=== PATIENT | female | born 1930 | race Caucasian/White ===

== ENCOUNTER 2018-05-23 20:04 | Inpatient (IN) ==
--- NOTE | 2018-05-23 20:11 | Emergency Department Note ---
General Adult HPI - General Chief complaint: Recheck/Abnormal Lab/Rx Stated complaint: low sodium Time Seen by Provider: 05/23/18 20:09 Source: family Mode of arrival: ambulatory Limitations: no limitations - History of Present Illness HPI Narrative: This patient was sent in by Dr. Molina because a review routine lab values showed a sodium of 125. This did come down in the last couple of weeks. Dr. Molina was concerned because he can talk to the patient on the phone and he thought she seemed confused. He requested that she come to the emergency room she has. She is quite talkative and quite alert seems quite reasonable at this time. We will recheck the lab values and start IV with some lactated Ringer's. She denies any other symptoms. She says she has been drinking a lot of plain water because she was advised to because it so hot here. She is also had some lightheaded dizzy spells. - Related Data Home Medications Medication Instructions Recorded Confirmed Vitamin D 1500 1 tab PO QDAY 04/09/15 05/22/18 multivitamin 1 tab PO DAILY 04/09/15 05/22/18 calcium carbonate 500 mg calcium 1,500 mg PO QDAY tab 05/28/15 05/22/18 (1,250 mg) tablet ascorbic acid (vitamin C) 500 mg 500 mg PO .QODAY tab 07/10/17 05/22/18 tablet ferrous sulfate 325 mg (65 mg 325 mg PO .QODAY tab 07/10/17 05/22/18 iron) tablet Previous Rx's Medication Instructions Recorded atenolol 50 mg tablet 50 mg PO QDAY #90 tab 06/22/17 glipizide ER 10 mg tablet, 10 mg PO QDAY #90 tab 06/22/17 extended release 24 hr losartan 100 mg tablet 100 mg PO QDAY #90 tab 06/22/17 metformin 500 mg tablet 1,000 mg PO BID 90 Days #360 tab 06/22/17 potassium chloride ER 20 mEq 20 meq PO QDAY #90 tab 06/22/17 tablet,extended release(part/cryst) levothyroxine 112 mcg tablet 112 mcg PO QAM #90 tab 06/23/17 triamterene 75 1 tab PO QDAY #90 tab 08/08/17 mg-hydrochlorothiazide 50 mg tablet omeprazole 20 mg capsule,delayed 20 mg PO QDAY #90 cap 04/23/18 release glipizide ER 5 mg tablet, extended 5 mg PO QAM #30 tab 05/08/18 release 24 hr sulfamethoxazole 800 1 tab PO BID #14 tab 05/23/18 mg-trimethoprim 160 mg tablet Allergies Allergy/AdvReac Type Severity Reaction Status Date / Time lisinopril AdvReac Mild Cough Verified 05/22/18 09:40 morphine AdvReac too long Verified 05/22/18 09:40 to recall reaction Review of Systems All systems ED: reviewed and negative except as stated. Past Medical History - Past Medical History [facility] Narrative: Medical History (Last Reviewed 05/22/18 @ 10:17 by Tamiko Carrasco DO) Metabolic Syndrome X (Chronic) Bronchitis (Resolved) Vitamin D deficiency (Chronic) Squamous cell carcinoma of skin of face (Resolved) Shoulder joint derangement (Chronic) Osteopenia (Chronic) Osteoarthritis (Chronic) Muscle cramps (Chronic 06/30/14) Dysmetabolic syndrome X (Chronic) Hypothyroidism (Chronic) Hyponatremia (Chronic 01/07/13) Hypertension, essential (Chronic) Hyperlipemia (Chronic) Hypercalcemia (Chronic 06/02/13) Hernia, hiatal (Chronic) Hemorrhoids (Chronic) Gastroesophageal reflux (Chronic) Fatigue (Chronic) Esophageal dysmotility (Chronic) Diverticulitis of colon (Chronic) 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) Diabetes mellitus, type II (Chronic) Cough (Chronic 05/27/14) Anemia (Chronic) Alopecia (Chronic) Actinic keratosis (Chronic 05/06/13) Abdominal pain (Resolved) Past Surgical History (Last Reviewed 12/07/17 @ 14:56 by Chin Molina MD) Status post MASOOD-BSO (Resolved) History of hip replacement (Resolved) Status post biopsy of skin (Resolved 02/25/13) History of hemorrhoidectomy (Resolved) History of foot surgery (Resolved 04/12/13) History of esophagogastroduodenoscopy (Resolved 07/02/14) History of colonoscopy (Resolved) History of cholecystectomy (Resolved) History of cataract surgery (Resolved) History of appendectomy (Resolved) Family History (Last Reviewed 12/07/17 @ 14:56 by Chin Molina MD) Father Type 2 diabetes mellitus Mother Pulmonary embolism Medical history: Reports: other ( Diabetes bronchitis, hypothyroidism, hypertension, hyperlipidemia) Surgical history ED: Reports: other (Hemorrhoidectomy, foot surgery, EGD, colonoscopy, cholecystectomy, cataract, appendectomy) - Social History smoking status: Never smoker Alcohol use: Reports: None Drug use: Reports: none Physical Exam Limitations: no limitations General appearance: alert Head: atraumatic Eye: Present: normal appearance ENT: normal exam Neck: Present: normal inspection Chest: Present: normal inspection Respiratory: Present: normal lung sounds bilaterally Cardiovascular: Present: regular rate, normal rhythm, normal heart sounds Abdominal: Present: soft. Absent: distention, tenderness Neurological: Present: alert Psychiatric: Present: normal affect Skin: Present: warm, dry, intact Course Vital Signs Temperature 97.0 F 05/23/18 20:04 Pulse Rate 67 05/23/18 20:04 Respiratory Rate 19 05/23/18 20:04 Blood Pressure 187/69 05/23/18 20:04 Pulse Oximetry (%) 100 05/23/18 20:04 Temperature 97.0 F 05/23/18 20:04 Pulse Rate 65 05/23/18 21:16 Respiratory Rate 22 05/23/18 21:16 Blood Pressure 157/78 05/23/18 21:16 Pulse Oximetry (%) 100 05/23/18 21:16 Medical Decision Making - MDM Narrative Medical decision making narrative: This patient has a sodium of 119 earlier today at 122. She will be admitted to the hospital for treatment. - Lab Data Lab results reviewed: Yes I reviewed the patient's lab results. Result diagrams: 05/23/18 20:23 05/23/18 20:23 Lab Results 05/23/18 05/23/18 Range/Units 20:23 20:23 WBC 8.9 (4.5-11.0) K/mcL RBC 4.40 (4.00-5.20) M/mcL Hgb 13.3 (12.0-15.0) g/dL Hct 39.7 (36.0-48.0) % MCV 90.4 (80.0-100.0) fL MCH 30.3 (26.0-34.0) pg MCHC 33.6 (31.0-36.0) g/dL RDW 13.4 (11.5-14.5) % Plt Count 270 (140-440) K/mcL MPV 7.8 (7.4-10.4) fL Gran % 70.0 (38.0-78.0) % Lymph % (Auto) 19.9 (15.5-49.0) % [place] % (Auto) 7.7 (1.0-12.0) % Eos % (Auto) 2.0 (0.0-7.0) % Baso % (Auto) 0.4 (0.0-2.0) % Gran # 6.2 (1.8-8.0) K/mcL Lymph # (Auto) 1.8 (1.5-4.8) K/mcL [place] # (Auto) 0.7 (0.1-0.9) K/mcL Eos # (Auto) 0.2 (0.0-0.7) K/mcL Baso # (Auto) 0 (0.0-0.3) K/mcL Sodium 119 L* (133-145) mmol/L Potassium 3.8 (3.3-5.1) mmol/L Chloride 79 L (96-108) mmol/L Carbon Dioxide 25 (22-30) mmol/L Anion Gap 15.0 (8-16) BUN 12 (8-23) mg/dl Creatinine 1.0 (0.6-1.1) mg/dl GFR Calculation 51 Glucose 141 H (70-105) mg/dL Calcium 9.9 (8.6-10.4) mg/dl Total Bilirubin 0.4 (0.0-1.0) mg/dL AST 19 (0-37) U/l ALT 15 (0-40) U/l Alkaline Phosphatase 65 (39-117) U/L Total Protein 7.9 (5.9-8.4) gm/dL Albumin 4.7 (3.2-5.2) gm/dL Globulin 3.2 (2.2-3.7) gm/dL Albumin/Globulin Ratio 1.5 (1.0-2.3) Disposition Pt seen by COAL GASIFICATION TECHNICIAN/PA only: No Clinical Impression: Hyponatremia Disposition: Xfer As Inpt ([facility]) Condition: Good Referrals: Chin Molina MD [Primary Care Provider] - Time of Disposition: 21:36
[2018-05-23] MEDS ORDERED: LACTATED RINGERS 1,000 ML IV SCH (20:15)
[2018-05-23 21:07] LABS: Basophils # (Auto) 0 K/mcL (0.0-0.3); Basophils % (Auto) 0.4 % (0.0-2.0); Eosinophils # (Auto) 0.2 K/mcL (0.0-0.7); Lymphocytes # (Auto) 1.8 K/mcL (1.5-4.8); Lymphocytes % (Auto) 19.9 % (15.5-49.0); Mean Cell Volume 90.4 fL (80.0-100.0); Mean Corpuscular HGB Conc 33.6 g/dL (31.0-36.0); Mean Corpuscular Hemoglobin 30.3 pg (26.0-34.0); Monocytes # (Auto) 0.7 K/mcL (0.1-0.9); Monocytes % (Auto) 7.7 % (1.0-12.0); Platelet Count 270 K/mcL (140-440); Red Cell Distribution Width 13.4 % (11.5-14.5)
[2018-05-23 21:30] LABS: ALT/SGPT 15 U/l (0-40); Albumin 4.7 gm/dL (3.2-5.2); Albumin/Globulin Ratio 1.5 (1.0-2.3); Alkaline Phosphatase 65 U/L (39-117); Blood Urea Nitrogen 12 mg/dl (8-23)
[2018-05-23] MEDS ORDERED: ACETAMINOPHEN 325 MG TABLET PO PRN (22:26)
[2018-05-23] MEDS ORDERED: ONDANSETRON 4 MG/2 ML VIAL IV PRN (22:26)
[2018-05-23] MEDS ORDERED: cefTRIAXone 1 GM in DEXTROSE 5% IN WATER 50 ML IV SCH (22:26)
[2018-05-23] MEDS ORDERED: DEXTROSE 50% 50 ML VIAL IV PRN (22:39)
[2018-05-23] MEDS ORDERED: DEXTROSE 31 GM ORAL.SUSP PO PRN (22:39)
[2018-05-23] MEDS ORDERED: cefTRIAXone 1 GM VIAL ONE (23:04)
[2018-05-23 23:05] LABS: Appearance,Urine CLEAR; Bacteria,Urine FEW /hpf (0); Bilirubin,Urine NEG (NEG); Color,Urine STRAW; Glucose,Urine (UA) NEGATIVE (NEG); Leukocyte Esterase,Urine NEG /uL (NEG); Protein,Urine NEG (NEG); Specific Gravity,Urine 1.003 (1.000-1.035); Urine Blood NEG mg/dL (<0.03); Urine RBC < 1 /hpf (0-1); Urine Squamous Epithelial Cell 1 /hpf (0-4); Urine WBC 2 /hpf (0-4); Urobilinogen,Urine NEG (NEG)
--- NOTE | 2018-05-23 23:05 | Internal Med History&Physical ---
Medical - H&P: HPI Patient information: Note initiated : 05/23/18 at 11:00 pm Service Date, if different from initiated Date: [] Patient: Nguyen Edwards 87 y/o F admitted on 05/23/18 for low sodium. Chief Complaint: [] History of present illness: Ms. Edwards is a 87 year old F who was brought to the ER for evaluation of abnormal lab. The patient had low sodium on lab work done by the PCP, Na of 122 , She also has been having some dizziness for the last couple of weeks. The patient notes that for the last couple of weeks she has been having some dizzy spells, she notes that dizzy spells can happen anytime usually not when she is lying in bed associated with spinning sensation. Sometimes nausea. No vomiting. She denies any headache acute changes in hearing or any tinnitus- like symptoms. She has been diagnosed with a urinary tract infection and took some antibiotics. The patient also notes that for the last couple weeks she has been drinking a lot more fluids at the urging of her family members. She usually does not drink much water however now has been drinking for large pictchers of water, 2 large glasses of iced tea and some other vegetable juices. The patient notes that her PCP had advised her against drinking too much water. The patient had her sodium level around 128-130 over the last few months. When checked today it was 122 and was therefore sent to the ER for further evaluation. In the emergency room patient was hemodynamically stable her sodium level was 119. Her CBC was normal rest of the chemistries unremarkable TSH was checked recently which was normal. UA was suggestive of a urinary tract infection. The patient was admitted to the hospital for further evaluation and management. Review of systems: CONSTITUTIONAL: No weight loss, fever, chills, weakness or fatigue. HEENT: Eyes: No visual loss, blurred vision, double vision or yellow sclerae. Ears, Nose, Throat: No hearing loss, sneezing, congestion, runny nose or sore throat. SKIN: No rash or itching. CARDIOVASCULAR: No chest pain, chest pressure or chest discomfort. No palpitations or edema. RESPIRATORY: No shortness of breath, cough or sputum. GASTROINTESTINAL: some nausea,No vomiting or diarrhea or constipation. No abdominal pain or blood in stools No T[place]ani. GENITOURINARY: Denies Burning on urination. Blood in urine, or foul smelling urine , she has increased frequency of urination. NEUROLOGICAL: No headache, but present dizziness,NO syncope, paralysis, tremors , numbness or tingling in the extremities. No change in bowel or bladder control. MUSCULOSKELETAL: present chronic back pain, No new joint pain or stiffness. HEMATOLOGIC: No bleeding or bruising. No enlarged nodes PSYCHIATRIC: No depression or anxiety. ENDOCRINOLOGIC: No reports of sweating, cold or heat intolerance. No polyuria or polydipsia. ALLERGIES: No hives, eczema or rhinitis. Skin: No rash, no jaundice, cyanosis or pallor. Medical - H&P: PMH Medical history: Medical History (Last Reviewed 05/22/18 @ 10:17 by Tamiko Carrasco DO) Metabolic Syndrome X (Chronic) Bronchitis (Resolved) Vitamin D deficiency (Chronic) Squamous cell carcinoma of skin of face (Resolved) Shoulder joint derangement (Chronic) Osteopenia (Chronic) Osteoarthritis (Chronic) Muscle cramps (Chronic 06/30/14) Dysmetabolic syndrome X (Chronic) Hypothyroidism (Chronic) Hyponatremia (Chronic 01/07/13) Hypertension, essential (Chronic) Hyperlipemia (Chronic) Hypercalcemia (Chronic 06/02/13) Hernia, hiatal (Chronic) Hemorrhoids (Chronic) Gastroesophageal reflux (Chronic) Fatigue (Chronic) Esophageal dysmotility (Chronic) Diverticulitis of colon (Chronic) 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) Diabetes mellitus, type II (Chronic) Cough (Chronic 05/27/14) Anemia (Chronic) Alopecia (Chronic) Actinic keratosis (Chronic 05/06/13) Abdominal pain (Resolved) Surgical history: Past Surgical History (Last Reviewed 12/07/17 @ 14:56 by Chin Molina MD) Status post MASOOD-BSO (Resolved) History of hip replacement (Resolved) Status post biopsy of skin (Resolved 02/25/13) History of hemorrhoidectomy (Resolved) History of foot surgery (Resolved 04/12/13) History of esophagogastroduodenoscopy (Resolved 07/02/14) History of colonoscopy (Resolved) History of cholecystectomy (Resolved) History of cataract surgery (Resolved) History of appendectomy (Resolved) Pertinent family history: Family History (Last Reviewed 12/07/17 @ 14:56 by Chin Molina MD) Father Type 2 diabetes mellitus Mother Pulmonary embolism Medical - H&P: Meds Home Medications Medication Instructions Recorded Confirmed Type multivitamin 1 tab PO DAILY 04/09/15 05/23/18 History calcium carbonate 500 mg calcium 1,500 mg PO TID tab 05/28/15 05/23/18 History (1,250 mg) tablet atenolol 50 mg tablet 50 mg PO QDAY #90 tab 06/22/17 05/23/18 Rx losartan 100 mg tablet 100 mg PO QDAY #90 tab 06/22/17 05/23/18 Rx metformin 500 mg tablet 1,000 mg PO BID 90 Days #360 tab 06/22/17 05/23/18 Rx potassium chloride ER 20 mEq 20 meq PO QDAY #90 tab 06/22/17 05/23/18 Rx tablet,extended release(part/cryst) levothyroxine 112 mcg tablet 112 mcg PO QAM #90 tab 06/23/17 05/23/18 Rx ferrous sulfate 325 mg (65 mg 325 mg PO .QODAY tab 07/10/17 05/23/18 History iron) tablet triamterene 75 1 tab PO QDAY #90 tab 08/08/17 05/23/18 Rx mg-hydrochlorothiazide 50 mg tablet omeprazole 20 mg capsule,delayed 20 mg PO QDAY #90 cap 04/23/18 05/23/18 Rx release glipizide ER 5 mg tablet, extended 5 mg PO QAM #30 tab 05/08/18 05/23/18 Rx release 24 hr Allergies Allergy/AdvReac Type Severity Reaction Status Date / Time lisinopril AdvReac Mild Cough Verified 05/22/18 09:40 morphine AdvReac too long Verified 05/22/18 09:40 to recall reaction Medical - H&P: Exam - Constitutional Vitals: Temp Pulse Resp BP Pulse Ox 97.0 F 66 14 152/69 95 05/23/18 20:04 05/23/18 22:01 05/23/18 22:01 05/23/18 22:01 05/23/18 22:01 Exam: GENERAL: The patient is a well-developed, well-nourished in no apparent distress. Is alert and oriented x3. VITAL SIGNS: Reviewed and as noted elsewhere. HEENT: Head is normocephalic and atraumatic. Extraocular muscles are intact. Pupils are equal, round, and reactive to light. Nares appeared normal. Mouth appears any without lesions. Mucous membranes are moist. NECK: Normal to inspection, Supple, No lymphadenopathy or thyromegaly. LUNGS: Air entry equal on both sides, no wheezing, crackles or rhonchi noted. No accessory muscles of respiration HEART: Regular rate and rhythm normal, S1 and S2 heard, no Gallop, S3 or Rub Noted, No Gross murmur heard. ABDOMEN: Soft, nontender, and nondistended. Positive bowel sounds. No hepatosplenomegaly was noted. EXTREMITIES: No cyanosis, clubbing, rash, lesions or edema. NEUROLOGIC: Cranial nerves II through XII are grossly intact. Motor and Sensory System Grossly Intact PSYCHIATRIC: Normal affect, Normal Mood. Appropriate Behavior. SKIN: No ulceration or wounds noted, No jaundice, No rash noted. Medical - H&P: Reslt - Labs CBC & Chem 7: 05/23/18 20:23 05/23/18 20:23 Labs: Short CBC 05/23/18 Range/Units 20:23 WBC 8.9 (4.5-11.0) K/mcL Hgb 13.3 (12.0-15.0) g/dL Hct 39.7 (36.0-48.0) % Plt Count 270 (140-440) K/mcL BMP 05/23/18 20:23 Sodium 119 L* Potassium 3.8 Chloride 79 L Carbon Dioxide 25 BUN 12 Creatinine 1.0 Glucose 141 H Calcium 9.9 Liver Function 05/23/18 Range/Units 20:23 Total Bilirubin 0.4 (0.0-1.0) mg/dL AST 19 (0-37) U/l ALT 15 (0-40) U/l Alkaline Phosphatase 65 (39-117) U/L Albumin 4.7 (3.2-5.2) gm/dL Medical - H&P: A/P - Narrative A/P Narrative: A/P Acute hyponatremia, severe Diabetes Hypertension Vertigo/ Dizziness Urinary Tract Infection Chronic back pain Hypothyroidism Hyperlipidemia Plan Admit to tele IV LR x 1000ml given in the ER, recheck sodium, monitor sodium closely, try to correct slowly, goal 8-10 in 24 hrs, more slowly if possible. Fluid restriction to 1500ml check urine studies. patient has been on hctz 50mg and triamterene, which likely has contributed to patients low sodium, and low baseline sodium to begin with. It likely also confound some urine sodium studies. D/C triamterene hctz, start on amlodipine 10mg daily for bp management. we could alternatively consider aldactone for bp management. Resume rest of bp meds IV rocephin for UTI, resume home medications. hold diabetes meds, Insulin ssi for glucose controll Carb consitent diet, 1500cc fluid restriction DVT hep sq Social History - Social History household members: alone housing: house lives independently: Yes marital status: occupational status: retired - Tobacco smoking status: Never smoker - Alcohol alcohol intake frequency: former alcohol drinker
[2018-05-23 23:07] LABS: Osmolality,Urine 141 mOsm/kg (80-1000)
[2018-05-23 23:18] LABS: Blood Urea Nitrogen 11 mg/dl (8-23)
[2018-05-23] MEDS: 0.9 % SODIUM CHLORIDE 10 ML SYRINGE IV SCH (23:30)
[2018-05-24 05:35] LABS: Basophils # (Auto) 0 K/mcL (0.0-0.3); Basophils % (Auto) 0.3 % (0.0-2.0); Eosinophils # (Auto) 0.1 K/mcL (0.0-0.7); Eosinophils % (Auto) 1.3 % (0.0-7.0); Granulocytes % (Auto) 74.9 % (38.0-78.0); Lymphocytes # (Auto) 1.5 K/mcL (1.5-4.8); Lymphocytes % (Auto) 15.3 % (15.5-49.0); Mean Cell Volume 91.1 fL (80.0-100.0); Monocytes # (Auto) 0.8 K/mcL (0.1-0.9); Monocytes % (Auto) 8.2 % (1.0-12.0); Platelet Count 226 K/mcL (140-440); RBC 3.78 M/mcL (4.00-5.20); Red Cell Distribution Width 13.3 % (11.5-14.5)
[2018-05-24] MEDS: 0.9 % SODIUM CHLORIDE 10 ML SYRINGE IV SCH ×4 (05:56→21:43)
[2018-05-24 06:02] LABS: ALT/SGPT 11 U/l (0-40); Albumin 3.8 gm/dL (3.2-5.2); Albumin/Globulin Ratio 1.7 (1.0-2.3); Alkaline Phosphatase 53 U/L (39-117); Bilirubin,Direct < 0.2 mg/dL (0.0-0.3); Blood Urea Nitrogen 9 mg/dl (8-23); Gamma Glutamyl Transpeptidase 9 U/L (5-36); Uric Acid 4.2 mg/dL (2.5-8.0)
[2018-05-24] MEDS ORDERED: LEVOTHYROXINE SODIUM 112 MCG TABLET PO SCH (07:30)
[2018-05-24] MEDS ORDERED: OMEPRAZOLE 20 MG CAPSULE PO SCH (07:30)
[2018-05-24] MEDS: INSULIN LISPRO 1 UNIT/0.01 ML UNIT SQ SCH ×4 (07:59→21:44)
[2018-05-24] MEDS ORDERED: DEXTROSE 5%-1/2NS W/40MEQ KCL 1,000 ML IV SCH (08:00)
[2018-05-24] MEDS ORDERED: MAGNESIUM SULFATE 32.48 MEQ in DEXTROSE 5% IN WATER 100 ML IV ONE (08:21)
[2018-05-24] MEDS: MAGNESIUM SULFATE 2 GM/50 ML BAG IV SCH ×2 (08:34→11:18)
[2018-05-24] MEDS ORDERED: MULTIVIT,THER IRON,CA,FA & MIN 1 TABLET PO SCH (09:00)
[2018-05-24] MEDS ORDERED: LOSARTAN 50 MG TABLET PO SCH (09:00)
[2018-05-24] MEDS ORDERED: ATENOLOL 50 MG TABLET PO SCH (09:00)
[2018-05-24] MEDS ORDERED: cefTRIAXone 1 GM VIAL IV SCH (09:00)
[2018-05-24] MEDS ORDERED: amLODIPine 10 MG TABLET PO SCH (09:00)
[2018-05-24] MEDS ORDERED: CALCIUM (OYSTER SHELL) 500 MG TABLET PO SCH (09:00)
[2018-05-24] MEDS ORDERED: HEPARIN 5,000 UNIT/ML VIAL SQ SCH (09:00)
--- NOTE | 2018-05-24 09:41 | Cat Scan Report ---
History: Dizziness and nausea TECHNIQUE: The brain was imaged without contrast at 2.5 mm intervals. Mild atrophy is present, predominantly involving the frontal and temporal lobes. There is no evidence of hemorrhage, infarct or mass effect. The ventricles and cisterns are normal. No abnormality is seen in the posterior fossa. The visualized sinuses are clear. IMPRESSION: Normal exam for patient's age Interpreted and Authenticated by: Suresh Landa 05/24/18
[2018-05-24 11:58] LABS: Blood Urea Nitrogen 9 mg/dl (8-23)
[2018-05-24] MEDS ORDERED: FERROUS SULFATE 325 MG TABLET PO SCH (12:00)
[2018-05-24] MEDS ORDERED: POTASSIUM CHLORIDE 20 MEQ TABLET PO ONE (12:39)
--- NOTE | 2018-05-24 12:44 | Internal Med Progress Note ---
Medical - PN: Subj Patient information: Note initiated : 05/24/18 at 12:42 pm Service Date, if different from initiated Date: [] Patient: Nguyen Edwards 87 y/o F admitted on 05/23/18 for Low Sodium/ Hyponatremia. Chief Complaint: [] Interval history: Ms. Edwards is a 87 year old F who was brought to the ER for evaluation of abnormal lab. The patient had low sodium on lab work done by the PCP, Na of 122 , She also has been having some dizziness for the last couple of weeks. The patient notes that for the last couple of weeks she has been having some dizzy spells, she notes that dizzy spells can happen anytime usually not when she is lying in bed associated with spinning sensation. Sometimes nausea. No vomiting. She denies any headache acute changes in hearing or any tinnitus- like symptoms. She has been diagnosed with a urinary tract infection and took some antibiotics. The patient also notes that for the last couple weeks she has been drinking a lot more fluids at the urging of her family members. She usually does not drink much water however now has been drinking for large pictchers of water, 2 large glasses of iced tea and some other vegetable juices. The patient notes that her PCP had advised her against drinking too much water. The patient had her sodium level around 128-130 over the last few months. When checked today it was 122 and was therefore sent to the ER for further evaluation. In the emergency room patient was hemodynamically stable her sodium level was 119. Her CBC was normal rest of the chemistries unremarkable TSH was checked recently which was normal. UA was suggestive of a urinary tract infection. The patient was admitted to the hospital for further evaluation and management. 05/24 Patient seen and examined, no acute overnight events. Patient's sodium was 126 this morning, patient was started on a D5 drip repeat sodium is 122. Patient has intermittent dizziness which she clearly explains as vertigo-like symptoms. Head CT was done which is negative. Patient will continue to be on free water restriction, will monitor sodium closely. Plan of care reviewed with the patient as well as daughter and grandson. Transfer patient to medical status. Pertinent ROS: Denies headache, dizziness Denies chest pain, palpitations Denies cough or shortness of breath Denies abdominal pain, nausea or vomiting. - Constitutional Vitals: Vital Signs Temp Pulse Resp BP Pulse Ox 97.1 F 64 16 160/73 97 05/24/18 07:28 05/24/18 04:00 05/24/18 07:28 05/24/18 07:28 05/24/18 07:28 Period Temp Pulse Resp BP Sys/Low Pulse Ox Last 24 Hr 97.0 F-97.4 F 63-67 14-22 141-187/64-82 95-100 Intake and Output 05/23/18 05/24/18 05/24/18 21:59 05:59 13:59 Intake Total 421 / 421 525 / 525 Output Total 1300 / 1300 Balance -879 / -879 525 / 525 Weight 138 lb 138 lb Intake & Output: Intake & Output 05/23/18 05/24/18 05/24/18 21:59 05:59 13:59 Intake Total 421 / 421 525 / 525 Output Total 1300 / 1300 Balance -879 / -879 525 / 525 Weight 138 lb 138 lb Intake: IV 371 / 371 125 / 125 Dextrose 5%-1/2Ns W/40Meq KCl 1 75 / 75 ,000 ml @ 75 mls/hr IV .[id number] RONDA Rx#:[id number] Lactated Ringers 1,000 ml @ 250 371 / 371 mls/hr IV .Q4H RONDA Rx#: [id number] Oral 50 / 50 400 / 400 Output: Void Amount 1300 / 1300 Other: Meal Breakfast Percent of Meal Consumed 75% Feeding Ability Independent # Voids 1 Exam: Constitutional; Afebrile, cooperative, alert, not in distress. Eyes- No icterus, , No periorbital swelling Ears- Ext ear normal, hearing normal to conversation. Neck- Midline trachea, supple Respiratory system: Air Entry equal on both sides, No crackles or wheezing, no rhonchi. CVS- Rate rhythm regular, S1,S2 heard, no gallop, no rub. 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 Medical - PN: Obj Da - Labs CBC & Chem 7: 05/24/18 04:00 05/24/18 11:08 Labs: Abnormal Lab Results 05/24/18 05/24/18 05/24/18 11:08 04:00 04:00 RBC 3.78 L Hgb 11.7 L Hct 34.4 L Lymph % (Auto) 15.3 L Sodium 122 L 126 L Chloride 81 L 86 L Glucose 196 H Osmolality Phosphorus 2.6 L Magnesium 1.3 L Triglycerides 219 H Urine Bacteria 05/23/18 05/23/18 05/23/18 22:38 22:35 20:23 RBC Hgb Hct Lymph % (Auto) Sodium 121 L Chloride 82 L Glucose Osmolality 254 L Phosphorus Magnesium Triglycerides Urine Bacteria Few A 05/23/18 20:23 RBC Hgb Hct Lymph % (Auto) Sodium 119 L* Chloride 79 L Glucose 141 H Osmolality Phosphorus Magnesium Triglycerides Urine Bacteria Meds: Medications Acetaminophen (Tylenol) 650 mg PO Q6HP PRN PRN Reason: PAIN/FEVER > 101 Amlodipine Besylate (Norvasc) 10 mg PO DAILY COUNTS INCLUDE 234 BEDS AT THE [facility] Last Admin: 05/24/18 08:33 Dose: 10 mg Atenolol (Tenormin) 50 mg PO QDAY COUNTS INCLUDE 234 BEDS AT THE [facility] Last Admin: 05/24/18 08:33 Dose: 50 mg Calcium Carbonate/Glycine (Oscal) 1,500 mg PO TID COUNTS INCLUDE 234 BEDS AT THE [facility] Last Admin: 05/24/18 08:33 Dose: 1,500 mg Ceftriaxone Sodium (Rocephin) 1 gm IV Q24H COUNTS INCLUDE 234 BEDS AT THE [facility] Last Admin: 05/24/18 08:15 Dose: 1 gm Dextrose (Dextrose 50%) 0 ml IV UD PRN PRN Reason: Hypoglycemia Diagnostic Test (Pha) (Accu-Chek) 1 each FS [facility] COUNTS INCLUDE 234 BEDS AT THE [facility] Last Admin: 05/24/18 11:43 Dose: 1 each Ferrous Sulfate (Ferrous Sulfate) 325 mg PO DAILY@1200 COUNTS INCLUDE 234 BEDS AT THE [facility] Last Admin: 05/24/18 11:46 Dose: 325 mg Glucose (Insta-Glucose) 15 gm PO PRN PRN PRN Reason: Hypoglycemia Heparin Sodium (Porcine) (Heparin) 5,000 unit SQ Q12 COUNTS INCLUDE 234 BEDS AT THE [facility] Last Admin: 05/24/18 08:33 Dose: 5,000 unit Insulin Human Lispro (Humalog) 0 unit SQ [facility]; Protocol Last Admin: 05/24/18 11:44 Dose: 3 unit Iron Carb/Multivit/Jay/Folic Acid (Multivitamin W/Minerals) 1 tab PO DAILY COUNTS INCLUDE 234 BEDS AT THE [facility] Last Admin: 05/24/18 08:33 Dose: 1 tab Levothyroxine Sodium (Synthroid) 112 mcg PO QAMAC COUNTS INCLUDE 234 BEDS AT THE [facility] Last Admin: 05/24/18 07:36 Dose: 112 mcg Losartan Potassium (Cozaar) 100 mg PO DAILY COUNTS INCLUDE 234 BEDS AT THE [facility] Last Admin: 05/24/18 08:33 Dose: 100 mg Omeprazole (Prilosec) 20 mg PO QAMAC COUNTS INCLUDE 234 BEDS AT THE [facility] Last Admin: 05/24/18 07:37 Dose: 20 mg Ondansetron HCl (Zofran) 4 mg IV Q4HP PRN PRN Reason: Nausea And Vomiting Sodium Chloride (Saline Flush) 10 ml IV Q8 COUNTS INCLUDE 234 BEDS AT THE [facility] Last Admin: 05/24/18 08:15 Dose: 10 ml Medical - PN: A/P - Time Spent With Patient Total time spent is greater than 50% in coordination of care (as documented) at patient's floor/unit and/or counseling patient: - Narrative A/P Narrative: A/P Acute hyponatremia, severe Diabetes Hypertension Vertigo/ Dizziness Urinary Tract Infection Chronic back pain Hypothyroidism Hyperlipidemia hypomagnesemia Hypokalemia Plan monitor on med surg Na trending up slowly, will use d5 prn to correct over correction as needed. monitor sodium closely, continue free water restriction of 1500cc replace mg and potassium insulin for ssi glucose continue home bp meds, start on amlodipine, will discontinue hctz-triamterne Patient is in overall good spirtis Carb consitent diet, 1500cc fluid restriction DVT hep sq
[2018-05-24] MEDS ORDERED: ACETAMINOPHEN 325 MG TABLET PO PRN (14:08)
[2018-05-24] MEDS ORDERED: ONDANSETRON 4 MG/2 ML VIAL IV PRN (14:08)
[2018-05-24] MEDS ORDERED: DEXTROSE 31 GM ORAL.SUSP PO PRN (14:08)
[2018-05-24] MEDS ORDERED: DEXTROSE 50% 50 ML VIAL IV PRN (14:08)
[2018-05-24] MEDS: CALCIUM (OYSTER SHELL) 500 MG TABLET PO SCH ×2 (14:49→21:44)
[2018-05-24 17:05] LABS: Blood Urea Nitrogen 10 mg/dl (8-23)
[2018-05-24 20:14] LABS: Blood Urea Nitrogen 12 mg/dl (8-23)
[2018-05-24] MEDS: HEPARIN 5,000 UNIT/ML VIAL SQ SCH (21:44)
[2018-05-25] MEDS: 0.9 % SODIUM CHLORIDE 10 ML SYRINGE IV SCH (05:29)
[2018-05-25 05:44] LABS: Basophils # (Auto) 0 K/mcL (0.0-0.3); Basophils % (Auto) 0.4 % (0.0-2.0); Eosinophils # (Auto) 0.3 K/mcL (0.0-0.7); Eosinophils % (Auto) 4.3 % (0.0-7.0); Granulocytes % (Auto) 65.4 % (38.0-78.0); Lymphocytes # (Auto) 1.4 K/mcL (1.5-4.8); Lymphocytes % (Auto) 20.3 % (15.5-49.0); Mean Cell Volume 89.8 fL (80.0-100.0); Mean Corpuscular HGB Conc 34.2 g/dL (31.0-36.0); Mean Corpuscular Hemoglobin 30.7 pg (26.0-34.0); Monocytes # (Auto) 0.7 K/mcL (0.1-0.9); Monocytes % (Auto) 9.6 % (1.0-12.0); Platelet Count 235 K/mcL (140-440); RBC 3.93 M/mcL (4.00-5.20); Red Cell Distribution Width 13.5 % (11.5-14.5)
[2018-05-25 06:17] LABS: ALT/SGPT 12 U/l (0-40); Albumin 3.8 gm/dL (3.2-5.2); Albumin/Globulin Ratio 1.4 (1.0-2.3); Alkaline Phosphatase 58 U/L (39-117); Bilirubin,Direct < 0.2 mg/dL (0.0-0.3); Blood Urea Nitrogen 14 mg/dl (8-23); Gamma Glutamyl Transpeptidase 9 U/L (5-36); Uric Acid 5.2 mg/dL (2.5-8.0)
[2018-05-25] MEDS ORDERED: OMEPRAZOLE 20 MG CAPSULE PO SCH (07:30)
[2018-05-25] MEDS ORDERED: LEVOTHYROXINE SODIUM 112 MCG TABLET PO SCH (07:30)
[2018-05-25] MEDS ORDERED: MULTIVIT,THER IRON,CA,FA & MIN 1 TABLET PO SCH (09:00)
[2018-05-25] MEDS ORDERED: cefTRIAXone 1 GM VIAL IV SCH (09:00)
[2018-05-25] MEDS ORDERED: LOSARTAN 50 MG TABLET PO SCH (09:00)
[2018-05-25] MEDS ORDERED: ATENOLOL 50 MG TABLET PO SCH (09:00)
[2018-05-25] MEDS ORDERED: amLODIPine 10 MG TABLET PO SCH (09:00)
--- NOTE | 2018-05-25 09:06 | Discharge Summary ---
Medical - DS: Prov Patient information: Note initiated : 05/25/18 at 8:49 am Service Date, if different from initiated Date: [] Patient: Nguyen Edwards 87 y/o F admitted on 05/23/18 for Low Sodium/ Hyponatremia. Chief Complaint: [] Date of admission: 05/23/18 22:18 Discharge date: 05/25/18 Primary care physician: Chin Molina Admitting clinician: Gab Ramirez Discharging clinician: Gab Ramirez Medical - DS: Meds - Discharge Medications Prescriptions: amLODIPine [Norvasc] 10 mg PO DAILY #30 tab Active and Home Medications: Home Medications multivitamin 1 tab PO DAILY 04/09/15 [History Confirmed 05/23/18 Last Taken ] calcium carbonate 500 mg calcium (1,250 mg) tablet 1,500 mg PO TID tab [History Confirmed 05/23/18 Last Taken 02/06/17] atenolol 50 mg tablet 50 mg PO QDAY #90 tab 06/22/17 [Rx Confirmed 05/23/18 Last Taken Unknown] losartan 100 mg tablet 100 mg PO QDAY #90 tab 06/22/17 [Rx Confirmed 05/23/18 Last Taken Unknown] metformin 500 mg tablet 1,000 mg PO BID 90 Days #360 tab 06/22/17 [Rx Confirmed 05/23/18 Last Taken Unknown] potassium chloride ER 20 mEq tablet,extended release(part/cryst) 20 meq PO QDAY #90 tab 06/22/17 [Rx Confirmed 05/23/18 Last Taken Unknown] levothyroxine 112 mcg tablet 112 mcg PO QAM #90 tab 06/23/17 [Rx Confirmed 05/23 Last Taken Unknown] ferrous sulfate 325 mg (65 mg iron) tablet 325 mg PO .QODAY tab 07/10/17 [ History Confirmed 05/23/18 Last Taken Unknown] triamterene 75 mg-hydrochlorothiazide 50 mg tablet 1 tab PO QDAY #90 tab [Rx Confirmed 05/23/18 Last Taken Unknown] omeprazole 20 mg capsule,delayed release 20 mg PO QDAY #90 cap 04/23/18 [Rx Confirmed 05/23/18 Last Taken Unknown] glipizide ER 5 mg tablet, extended release 24 hr 5 mg PO QAM #30 tab 05/08/18 [ Rx Confirmed 05/23/18 Last Taken Unknown] Medical - DS: Hosp Hospital course: Ms. Edwards is a 87 year old F who was brought to the ER for evaluation of abnormal lab. The patient had low sodium on lab work done by the PCP, Na of 122 , She also has been having some dizziness for the last couple of weeks. The patient notes that for the last couple of weeks she has been having some dizzy spells, she notes that dizzy spells can happen anytime usually not when she is lying in bed associated with spinning sensation. Sometimes nausea. No vomiting. She denies any headache acute changes in hearing or any tinnitus- like symptoms. She has been diagnosed with a urinary tract infection and took some antibiotics. The patient also notes that for the last couple weeks she has been drinking a lot more fluids at the urging of her family members. She usually does not drink much water however now has been drinking for large pictchers of water, 2 large glasses of iced tea and some other vegetable juices. The patient notes that her PCP had advised her against drinking too much water. The patient had her sodium level around 128-130 over the last few months. When checked today it was 122 and was therefore sent to the ER for further evaluation. In the emergency room patient was hemodynamically stable her sodium level was 119. Her CBC was normal rest of the chemistries unremarkable TSH was checked recently which was normal. UA was suggestive of a urinary tract infection. The patient was admitted to the hospital for further evaluation and management. Hyponatremia- The patient hyponatremia is attributed to a combination of increased po intake as well as use of Triamterene -hctz, the patient had mild baseline hyponatremia, which got exacerbated when the patients family advised her to increase her fluid intake. The patient was treated with fluid restriction, patient's sodium was monitored closely and it gradually improved over 2 days. The patient sodium is 132 today. She is able to tolerate p.o. diet well. I have advised the patient to stop the hydrochlorothiazide triamterene combination. She will start on amlodipine 10 mg once a day for blood pressure management instead. The patient has a follow-up with the PCP next week I have advised her to have a basic metabolic profile to be checked by the PCP. With regards to Dizziness, her clinical story is that of vertigo/bppv, Head CT is negative, this has resolved ,not sure of low sodium exacerbated this issue, should she need she could use low dose of meclizine. At the time of discharge patient is hemodynamically stable tolerating p.o. diet well and in good spirits ambulating well. She will be discharged home with family. She has been educated to watch her fluid intake, advised her 2000 mL free water restriction, the patient notes that she rarely drinks that much fluid. Discharge diagnosis: Hyponatremia - Time Spent with Patient Total time spent providing and/or coordinating discharge services: Less than 30 minutes Medical - DS: Exam - Constitutional Vitals: Vital Signs Temp Pulse Pulse Resp BP BP BP 05/25/18 06:30 98.7 F 16 123/70 05/25/18 03:50 98.9 F 70 12 130/65 05/25/18 00:00 97.7 F 63 20 114/63 05/24/18 19:01 97.7 F 74 16 139/60 05/24/18 16:00 96.7 F L 93 H 17 135/76 05/24/18 13:03 97.8 F 57 L 18 115/57 Pulse Ox 05/25/18 06:30 94 05/25/18 03:50 05/25/18 00:00 92 05/24/18 19:01 97 05/24/18 16:00 92 05/24/18 13:03 100 Intake and Output 05/24/18 05/25/18 05/25/18 21:59 05:59 13:59 Intake Total 60 / 60 900 / 900 Output Total 750 / 750 Balance 60 / 60 150 / 150 Intake: Oral 60 / 60 900 / 900 Output: Void Amount 750 / 750 Other: Meal Dinner Percent of Meal Consumed 100% Feeding Ability Independent Urine Appearance Clear Urine Color Bright Yellow Urine Odor Normal Stool Size Small Stool Color Brown Green # Voids 1 # Bowel Movements 1 Weight 136 lb Additional comments: Constitutional; Afebrile, cooperative, alert, not in distress. Eyes- No icterus, , No periorbital swelling Ears- Ext ear normal, hearing normal to conversation. Neck- Midline trachea, supple Respiratory system: Air Entry equal on both sides, No crackles or wheezing, no rhonchi. CVS- Rate rhythm regular, S1,S2 heard, no gallop, no rub. Abdomen- Soft nontender abdomen, no organomegaly, no tenderness, no guarding or rigidity, [employer]- AOOx3, moving all extremities, no gross focal deficit noted. Medical - DS: Data Labs on day of discharge: Labs from last 24 hours 05/25/18 05/25/18 05/24/18 04:15 04:15 19:30 WBC 7.0 RBC 3.93 L Hgb 12.1 Hct 35.3 L MCV 89.8 MCH 30.7 MCHC 34.2 RDW 13.5 Plt Count 235 MPV 8.3 Gran % 65.4 Lymph % (Auto) 20.3 Nash % (Auto) 9.6 Eos % (Auto) 4.3 Baso % (Auto) 0.4 Gran # 4.6 Lymph # (Auto) 1.4 L Nash # (Auto) 0.7 Eos # (Auto) 0.3 Baso # (Auto) 0 Sodium 130 L 127 L Potassium 3.7 3.9 Chloride 91 L 86 L Carbon Dioxide 28 29 Anion Gap 11.0 12.0 BUN 14 12 Creatinine 0.9 0.9 GFR Calculation 58 58 Glucose 112 H 220 H Uric Acid 5.2 Calcium 9.2 9.2 Phosphorus 3.0 Magnesium 2.0 Total Bilirubin 0.2 Direct Bilirubin < 0.2 GGT 9 AST 14 ALT 12 Alkaline Phosphatase 58 Lactate Dehydrogenase 143 Total Protein 6.5 Albumin 3.8 Globulin 2.7 Albumin/Globulin Ratio 1.4 Triglycerides 179 H 05/24/18 05/24/18 16:13 11:08 WBC RBC Hgb Hct MCV MCH MCHC RDW Plt Count MPV Gran % Lymph % (Auto) Nash % (Auto) Eos % (Auto) Baso % (Auto) Gran # Lymph # (Auto) Nash # (Auto) Eos # (Auto) Baso # (Auto) Sodium 125 L 122 L Potassium 3.7 3.8 Chloride 84 L 81 L Carbon Dioxide 29 27 Anion Gap 12.0 14.0 BUN 10 9 Creatinine 1.0 0.9 GFR Calculation 51 58 Glucose 127 H 196 H Uric Acid Calcium 9.0 9.2 Phosphorus Magnesium Total Bilirubin Direct Bilirubin GGT AST ALT Alkaline Phosphatase Lactate Dehydrogenase Total Protein Albumin Globulin Albumin/Globulin Ratio Triglycerides Medical - DS: A/P - Patient/Caregiver Discharge Instructions Activity: increase activity as tolerated Diet: Cardiac (Free water restriction to 2000ml/24 hrs) Additional Instructions: Please restrict free water/ Fluids to 2000ml, approx 64 Oz in 24 hours I have stopped your Triamterene -HCTZ medication which was likely cultprit causing low sodium. I have started you on amlodipine 10mg once daily instead Follow up with PCP in 1 week, Please make sure that your PCP checks your BMP to ensure that your electrolytes are stable. Go to the ER if worsening condition, chest pain, shortness of breath or any other acute concern. You can use Meclizine 12.5mg three times a day should your dizziness get worse. Talk to your PCP for further evaluation of same. - Follow up Plan Follow up with: Chin Molina MD [Primary Care Provider] - Disposition: Home, Self-Care Prognosis: Good Rehab Potential: Good I certify that the patient requires SNF services: No Overall status at discharge: patient is back to baseline
[2018-05-25] MEDS: HEPARIN 5,000 UNIT/ML VIAL SQ SCH (09:28)
[2018-05-25] MEDS: INSULIN LISPRO 1 UNIT/0.01 ML UNIT SQ SCH (09:29)
[2018-05-25] MEDS: CALCIUM (OYSTER SHELL) 500 MG TABLET PO SCH (09:29)
[2018-05-25] MEDS ORDERED: FERROUS SULFATE 325 MG TABLET PO SCH (12:00)
== END 2018-05-25 10:50 | disposition home or self-care (01) | DRG 641 ==
LOC: ED 20:04 → ICU 22:18 → MEDSUR 05-24 14:40
PROVIDERS: ADMIT Internal Medicine; ATTEND Internal Medicine